=== PATIENT | female | born 1955 | race Caucasian/White ===

== ENCOUNTER → 2017-03-10 | Outpatient (CLI) | payer MEDICARE ==
[~2017-03-10] MED LIST: AMARYL4 MG PO; AMBIEN10 M1 PO; ATIVAN0.5 MG PO; ATIVAN1 MG PO; B-1100 MG PO; BACTRIM DS 8001 TA1 PO; BACTROBAN2% TP; CARDIZEM CD120 MG PO; CARDIZEM60 MG PO; CATAPRES-TTS 10.1 MG PO; CEPHALEXIN500 M1 PO; CEPHULAC10 GM/151 PO; CIPRO500 MG PO; CIPROFLOXACIN500 MG PO; CLARITIN10 MG PO; COZAAR100 MG PO; DEPAKOTE500 MG PO; DILANTIN; DILANTIN100 MG PO; DOXYCYCLINE100 M3 PO; Duoneb 3ML 3 MG/3 ML INH; EES400 MG PO; HYDROCHLOROTHIA25 M1 PO; HYDROCODONE BIT1 T11 PO; HYDROGEL1 GEL; IRON325 M2 PO; K-LOR 20MEQ20 ME1 PO; LIBRIUM25 MG PO; LIDODERM5% TP; LISINOPRIL10 M1 PO; MAG-OX 400400 MG PO; MELATONIN3 M1 PO; METAMUCIL POWD822 GM PO; MIRALAX17 GM PO; MULTIPLE VITAMI1 CAP PO; MYCOLOG CREAM 115 GM T; NAPROSYN500 MG PO; NEOSPORIN1 OI1 T; NICODERM14 MG/24 H TD; OXYBUTYNIN5 MG PO; PEPCID40 MG PO; PREDNISONE10 MG PO; PRILOSEC40 M1 PO; PRIMAXIN 500 M500 MG IV; PROTONIX40 MG PO; PROZAC40 MG PO; PULMICORT RESP0.5 M1 INH; VICO75300 PO; VICODIN 5/500 505 MG PO; VICODIN ES 7501 TAB PO; XANAX; XANAX0.25 MG PO; XANAX0.5 MG PO; XIFAXAN550 MG PO; ZOLPIDEM5 MG PO
[2017-03-10 10:25] LABS: BASO % 0.5 % (0.0-1.0); EOS # 0.1 10*3/uL (0.0-0.4); EOS % 2.5 % (1.0-4.0); HEMOGLOBIN 13.6 g/dl (12.0-16.0); LYMPH # 1.1 10*3/uL (1.3-4.4); LYMPH % 19.9 % (27.0-41.0); MEAN CELL VOLUME 97.1 fl (81.0-99.0); MEAN PLATELET VOLUME 10.7 fl (9.6-12.3); MONO # 0.4 10*3/uL (0.1-1.0); NEUT # 3.9 10*3/uL (2.3-7.9); NEUT % 69.9 % (47.0-73.0); PLATELET COUNT AUTOMATED 66 10*3/uL (130-400); RED BLOOD COUNT 4.12 10*6/uL (4.10-5.10); RED CELL DISTRI WIDTH 13.9 % (0-14.5); WHITE BLOOD COUNT 5.5 10*3/uL (4.8-10.8)
[2017-03-10 10:53] LABS: ALBUMIN 3.6 gm/dl (3.1-4.5); ALKALINE PHOSPHATASE 163 U/L (45-117); BILIRUBIN, TOTAL 0.2 mg/dl (0.2-1.0); BUN 22 mg/dl (7-24); CARBON DIOXIDE 24 mmol/L (21-32); CHLORIDE 112 mmol/L (98-107); EST GLOM FILT AFRICAN AMERICAN > 60 ml/min; GLUCOSE 78 mg/dL (65-99); POTASSIUM 4.4 mmol/L (3.5-5.1); SGOT/AST 19 IU/L (3-35); SGPT/ALT 16 U/L (12-78); SODIUM 144 mmol/L (136-145)
== END | disposition home or self-care (01) ==
LOC: US 10:00 → LAB 10:10
PROVIDERS: Internal Medicine Gastroenterology
DX: K74.60 Unspecified cirrhosis of liver (principal); R10.13 Epigastric pain; I10 Essential (primary) hypertension

== ENCOUNTER → 2017-10-03 | Outpatient (CLI) | payer MEDICARE ==
[2017-10-03 16:51] LABS: BASO # 0.1 10*3/uL (0.0-0.1); EOS # 0.1 10*3/uL (0.0-0.4); EOS % 2.2 % (1.0-4.0); HEMOGLOBIN 11.7 g/dl (12.0-16.0); LYMPH # 1.4 10*3/uL (1.3-4.4); LYMPH % 22.6 % (27.0-41.0); MEAN CORPUSCULAR HGB 32.8 pg (27.0-31.0); MEAN CORPUSCULAR HGB CONC 33.4 g/dl (33.0-37.0); MEAN PLATELET VOLUME 11.3 fl (9.6-12.3); MONO # 0.4 10*3/uL (0.1-1.0); NEUT # 4.1 10*3/uL (2.3-7.9); NEUT % 67.7 % (47.0-73.0); PLATELET COUNT AUTOMATED 72 10*3/uL (130-400); RED BLOOD COUNT 3.57 10*6/uL (4.10-5.10); RED CELL DISTRI WIDTH 13.1 % (0-14.5)
[2017-10-03 17:09] LABS: ALBUMIN 3.3 gm/dl (3.1-4.5); ALKALINE PHOSPHATASE 118 U/L (45-117); BUN 18 mg/dl (7-24); CHLORIDE 115 mmol/L (98-107); CHOLESTEROL 105 mg/dL (<200); CREATININE 0.87 mg/dL (0.55-1.02); FREE T4 0.99 ng/dl (0.76-1.46); HDL CHOLESTEROL 57 mg/dl (40-60); LDL CHOLESTEROL 33 mg/dL (9-159); PHENYTOIN (DILANTIN) 8.7 ug/ml (10-20); POTASSIUM 4.2 mmol/L (3.5-5.1); SGOT/AST 14 IU/L (3-35); SGPT/ALT 18 U/L (12-78); SODIUM 142 mmol/L (136-145); TOTAL PROTEIN 8.3 gm/dL (6.4-8.2); TRIGLYCERIDES 75 mg/dl (<150); VLDL CHOLESTEROL 15 mg/dL (6-40)
[2017-10-03 17:30] LABS: VITAMIN D, 25-HYDROXY 23.1 ng/mL (30-100)
== END ==
LOC: LAB 16:09
PROVIDERS: Internal Medicine
DX: Z13.1 Encounter for screening for diabetes mellitus (principal); Z13.220 Encounter for screening for lipoid disorders; Z13.21 Encounter for screening for nutritional disorder; R56.9 Unspecified convulsions; E55.9 Vitamin D deficiency, unspecified; E78.2 Mixed hyperlipidemia; K70.30 Alcoholic cirrhosis of liver without ascites; R19.7 Diarrhea, unspecified; R53.81 Other malaise

== ENCOUNTER → 2017-10-28 | Outpatient (CLI) | payer MEDICARE | END | disposition home or self-care (01) | LOC: RAD 14:37 | DX: M47.896 Other spondylosis, lumbar region (principal); M47.897 Other spondylosis, lumbosacral region; M43.26 Fusion of spine, lumbar region; M48.061 Spinal stenosis, lumbar region without neurogenic claudication; M48.07 Spinal stenosis, lumbosacral region ==

== ENCOUNTER 2018-01-17 14:24 | Emergency (ER) | payer MEDICARE ==
[~2018-01-17] VITALS: Ht 157.4 cm; Wt 49.9 kg
[2018-01-17] MEDS ORDERED: ZOLOFT50 MG PO (14:41)
[2018-01-17] MEDS ORDERED: DOXEPIN50 MG PO (14:42)
[2018-01-17] MEDS ORDERED: FOLIC ACID0.8 M1 PO (14:42)
[2018-01-17 15:36] LABS: BILIRUBIN NEGATIVE (NEGATIVE); BLOOD TRACE-LYSED (NEGATIVE); CLARITY SL CLOUDY (CLEAR); COLOR YELLOW (YELLOW); GLUCOSE NEGATIVE (NEGATIVE); KETONE TRACE (NEGATIVE); LEUKO ESTERASE NEGATIVE (NEGATIVE); NITRITE NEGATIVE (NEGATIVE); SPECIFIC GRAVITY 1.015 (1.005-1.030); UROBILINOGEN 0.2 E.U./dl (0.2-1.0)
[2018-01-17 15:52] LABS: BACTERIA TRACE; EPITHELIAL CELLS 15-20
[2018-01-17 16:19] LABS: BASO # 0.1 10*3/uL (0.0-0.1); BASO % 0.4 % (0.0-1.0); EOS % 0.3 % (1.0-4.0); HEMATOCRIT 33.2 % (37.0-47.0); HEMOGLOBIN 10.9 g/dl (12.0-16.0); LYMPH % 8.3 % (27.0-41.0); MEAN CELL VOLUME 95.4 fl (81.0-99.0); MEAN CORPUSCULAR HGB 31.3 pg (27.0-31.0); MEAN CORPUSCULAR HGB CONC 32.8 g/dl (33.0-37.0); MEAN PLATELET VOLUME 10.9 fl (9.6-12.3); MONO # 0.6 10*3/uL (0.1-1.0); MONO % 4.7 % (3.0-9.0); NEUT # 9.9 10*3/uL (2.3-7.9); NEUT % 85.7 % (47.0-73.0); PLATELET COUNT AUTOMATED 119 10*3/uL (130-400); RED BLOOD COUNT 3.48 10*6/uL (4.10-5.10); RED CELL DISTRI WIDTH 14.8 % (0-14.5); WHITE BLOOD COUNT 11.6 10*3/uL (4.8-10.8)
[2018-01-17 16:27] LABS: ACT PARTIAL THROMBO TIME 31.8 SECONDS (20.8-31.5)
[2018-01-17 16:34] LABS: ALBUMIN 2.8 gm/dl (3.1-4.5); ALKALINE PHOSPHATASE 167 U/L (45-117); BUN 28 mg/dl (7-24); CHLORIDE 126 mmol/L (98-107); CREATININE 1.12 mg/dL (0.55-1.02); LIPASE 318 U/L (73-393); PHENYTOIN (DILANTIN) 8.1 ug/ml (10-20); POTASSIUM 3.4 mmol/L (3.5-5.1); SGOT/AST 14 IU/L (3-35); SGPT/ALT 19 U/L (12-78); SODIUM 149 mmol/L (136-145); TOTAL PROTEIN 8.3 gm/dL (6.4-8.2)
[2018-01-17 16:42] LABS: TROPONIN I < 0.015 ng/ml (<0.045)
[2018-01-17 17:18] LABS: ABG HCO3 7.3 mmol/l (22-26); ABG O2 SATURATION 97.1 % (95-97); ARTERIAL BLOOD GAS PCO2 19.4 mmHg (35-45)
[2018-01-17 17:22] LABS: ABG BASE EXCESS -19.5 mmol/L (-2.0-2.0); ARTERIAL BLOOD GAS PH 7.195 (7.35-7.45)
[2018-01-20 16:09] LABS: METHYL ALCOHOL 017699 Negative % (0.000-0.010)
[2018-01-21 11:03] LABS: ETHYLENE GLYCOL 071654 None Detected (None detected)
== END 2018-01-17 20:25 | disposition short-term general hospital (02) ==
LOC: ED 14:24
PROVIDERS: Emergency Medicine; Nurse Practitioner Family
DX: E87.2 Acidosis (principal); F17.200 Nicotine dependence, unspecified, uncomplicated; Z79.899 Other long term (current) drug therapy

== ENCOUNTER → 2018-02-02 | Outpatient (CLI) | payer MEDICARE ==
[~2018-02-02] MED LIST changes: +DOXEPIN50 MG PO; +FOLIC ACID0.8 M1 PO; +ZOLOFT50 MG PO
[2018-02-02 12:49] LABS: HEMATOCRIT 33.9 % (37.0-47.0); HEMOGLOBIN 11.3 g/dl (12.0-16.0); MEAN CELL VOLUME 94.7 fl (81.0-99.0); MEAN CORPUSCULAR HGB 31.6 pg (27.0-31.0); MEAN CORPUSCULAR HGB CONC 33.3 g/dl (33.0-37.0); MEAN PLATELET VOLUME 11.7 fl (9.6-12.3); PLATELET COUNT AUTOMATED 195 10*3/uL (130-400); RED BLOOD COUNT 3.58 10*6/uL (4.10-5.10); RED CELL DISTRI WIDTH 15.1 % (0-14.5); WHITE BLOOD COUNT 9.3 10*3/uL (4.8-10.8)
[2018-02-02 13:05] LABS: ALKALINE PHOSPHATASE 191 U/L (45-117); BILIRUBIN, DIRECT 0.1 mg/dL (0.0-0.2); BUN 23 mg/dl (7-24); CHLORIDE 114 mmol/L (98-107); CREATININE 1.04 mg/dL (0.55-1.02); FREE T4 0.96 ng/dl (0.76-1.46); IRON 108 ug/dL (50-170); POTASSIUM 3.8 mmol/L (3.5-5.1); SGOT/AST 23 IU/L (3-35); SGPT/ALT 25 U/L (12-78); SODIUM 140 mmol/L (136-145); TOTAL IRON BINDING CAPACITY 239 ug/dl (250-450)
[2018-02-02 13:11] LABS: PLATELET SUFFICIENCY NORMAL (NORMAL); TOTAL CELLS COUNTED 100 #CELLS
[2018-02-02 13:26] LABS: VITAMIN D, 25-HYDROXY 17.7 ng/mL (30-100)
== END | disposition home or self-care (01) ==
LOC: LAB 11:47
PROVIDERS: Internal Medicine
DX: D50.9 Iron deficiency anemia, unspecified (principal); E55.9 Vitamin D deficiency, unspecified; E78.5 Hyperlipidemia, unspecified; R63.4 Abnormal weight loss

== ENCOUNTER → 2018-04-21 | Outpatient (CLI) | payer MEDICARE | END | disposition home or self-care (01) | LOC: RAD 17:15 | DX: M25.561 Pain in right knee (principal); Z96.651 Presence of right artificial knee joint ==

== ENCOUNTER 2018-07-06 10:30 | Emergency (ER) | payer MEDICARE ==
[~2018-07-06] VITALS: Ht 157.4 cm; Wt 48.1 kg
[2018-07-06] MEDS ORDERED: NAPROSYN500 MG PO (11:45)
== END 2018-07-06 11:58 | disposition home or self-care (01) ==
LOC: ED 10:30
DX: S70.01XA Contusion of right hip, initial encounter (principal); S80.01XA Contusion of right knee, initial encounter; Z79.899 Other long term (current) drug therapy; W18.39XA Other fall on same level, initial encounter; Y93.89 Activity, other specified; Y92.89 Other specified places as the place of occurrence of the external cause; Y99.8 Other external cause status

== ENCOUNTER → 2018-11-16 | Outpatient (CLI) | payer MEDICARE ==
[2018-11-16 14:23] LABS: HEMOGLOBIN 13.2 g/dl (12.0-16.0); MEAN CELL VOLUME 102.1 fl (81.0-99.0); MEAN CORPUSCULAR HGB 34.6 pg (27.0-31.0); MEAN CORPUSCULAR HGB CONC 33.8 g/dl (33.0-37.0); MEAN PLATELET VOLUME 10.6 fl (9.6-12.3); RED BLOOD COUNT 3.82 10*6/uL (4.10-5.10); RED CELL DISTRI WIDTH 14.8 % (0-14.5)
[2018-11-16 15:04] LABS: ALBUMIN 3.5 gm/dl (3.1-4.5); BILIRUBIN, DIRECT 0.1 mg/dL (0.0-0.2); TOTAL PROTEIN 8.1 gm/dL (6.4-8.2)
[2018-11-17 05:08] LABS: TOTAL PROTEIN, SERUM 7.7 g/dL (6.0-8.5)
[2018-11-17 15:07] LABS: A/G RATIO 0.9 (0.7-1.7); ALBUMIN 3.7 g/dL (2.9-4.4); ALPHA-1-GLOBULIN 0.2 g/dL (0.0-0.4); ALPHA-2-GLOBULIN 0.8 g/dL (0.4-1.0); BETA GLOBULIN 1.1 g/dL (0.7-1.3); GAMMA GLOBULIN 1.9 g/dL (0.4-1.8); M-SPIKE Not Observed g/dL (Not Observed)
== END | disposition home or self-care (01) ==
LOC: LAB 13:53
PROVIDERS: Family Medicine
DX: D69.6 Thrombocytopenia, unspecified (principal); R77.1 Abnormality of globulin; R77.9 Abnormality of plasma protein, unspecified; R79.89 Other specified abnormal findings of blood chemistry; Z86.19 Personal history of other infectious and parasitic diseases

== ENCOUNTER 2019-06-20 23:10 | Emergency (ER) | payer MEDICARE ==
[~2019-06-20] VITALS: Wt 52.2 kg
[~2019-06-20 23:10] MED LIST changes: +BUSPAR5 MG PO; +CYMBALTA30 MG PO; +CYMBALTA60 MG PO; +IBUPROFEN400 MG PO; +LACTULOSE20 GM/30 M PO
== END 2019-06-21 02:08 | disposition home or self-care (01) ==
LOC: ED 23:10
DX: S00.03XA Contusion of scalp, initial encounter (principal); S40.022A Contusion of left upper arm, initial encounter; I10 Essential (primary) hypertension; G40.909 Epilepsy, unspecified, not intractable, without status epilepticus; F17.200 Nicotine dependence, unspecified, uncomplicated; Z79.899 Other long term (current) drug therapy; W01.198A Fall on same level from slipping, tripping and stumbling with subsequent striking against other object, initial encounter; Y93.89 Activity, other specified; Y92.89 Other specified places as the place of occurrence of the external cause; Y99.8 Other external cause status

== ENCOUNTER 2019-07-27 15:19 | Emergency (ER) | payer MEDICARE ==
[~2019-07-27] VITALS: Ht 157.4 cm; Wt 54.4 kg
== END 2019-07-27 17:30 | disposition home or self-care (01) ==
LOC: ED 15:19
DX: S60.221A Contusion of right hand, initial encounter (principal); S70.01XA Contusion of right hip, initial encounter; S00.83XA Contusion of other part of head, initial encounter; R11.10 Vomiting, unspecified; F17.200 Nicotine dependence, unspecified, uncomplicated; Z79.899 Other long term (current) drug therapy; Z86.718 Personal history of other venous thrombosis and embolism; W19.XXXA Unspecified fall, initial encounter; Y93.89 Activity, other specified; Y92.89 Other specified places as the place of occurrence of the external cause; Y99.8 Other external cause status

== ENCOUNTER 2019-10-07 13:08 | Inpatient (IN) | payer MEDICARE ==
[~2019-10-07] VITALS: Ht 157.5 cm; Wt 48.5 kg
[2019-10-07 13:18] VITALS: BP 189/102
[2019-10-07 13:48] VITALS: BP 150/90
[2019-10-07 14:33] LABS: BASO # 0.1 10*3/uL (0.0-0.1); EOS # 0.1 10*3/uL (0.0-0.4); EOS % 1.6 % (1.0-4.0); HEMATOCRIT 38.9 % (37.0-47.0); HEMOGLOBIN 12.6 g/dl (12.0-16.0); LYMPH # 1.4 10*3/uL (1.3-4.4); LYMPH % 20.7 % (27.0-41.0); MEAN CELL VOLUME 99.7 fl (81.0-99.0); MEAN CORPUSCULAR HGB 32.3 pg (27.0-31.0); MEAN CORPUSCULAR HGB CONC 32.4 g/dl (33.0-37.0); MEAN PLATELET VOLUME 9.8 fl (9.6-12.3); MONO # 0.5 10*3/uL (0.1-1.0); MONO % 7.4 % (3.0-9.0); NEUT # 4.6 10*3/uL (2.3-7.9); NEUT % 68.9 % (47.0-73.0); PLATELET COUNT AUTOMATED 104 10*3/uL (130-400); RED CELL DISTRI WIDTH 16.5 % (0-14.5); WHITE BLOOD COUNT 6.7 10*3/uL (4.8-10.8)
[2019-10-07 14:45] LABS: ALBUMIN 3.8 gm/dl (3.1-4.5); ALKALINE PHOSPHATASE 128 U/L (45-117); BUN 26 mg/dl (7-24); CHLORIDE 108 mmol/L (98-107); CREATININE 1.21 mg/dL (0.55-1.02); LIPASE 101 U/L (73-393); POTASSIUM 4.5 mmol/L (3.5-5.1); SGOT/AST 25 IU/L (3-35); SGPT/ALT 35 U/L (12-78); SODIUM 137 mmol/L (136-145); TOTAL PROTEIN 8.4 gm/dL (6.4-8.2)
[2019-10-07 14:45] LABS: BILIRUBIN NEGATIVE (NEGATIVE); BLOOD NEGATIVE (NEGATIVE); CLARITY CLEAR (CLEAR); COLOR YELLOW (YELLOW); GLUCOSE NEGATIVE (NEGATIVE); KETONE NEGATIVE (NEGATIVE); LEUKO ESTERASE 1+ (NEGATIVE); NITRITE NEGATIVE (NEGATIVE); SPECIFIC GRAVITY 1.015 (1.005-1.030); UROBILINOGEN 0.2 E.U./dl (0.2-1.0)
[2019-10-07 14:46] VITALS: BP 128/80
--- NOTE | 2019-10-07 14:46 | NUR ---
PT STATES THAT SHE IS FEELING IMPROVED AFTER THE ZOFRAN. PT TO CT AT THIS TIME.
[2019-10-07 14:47] LABS: ACT PARTIAL THROMBO TIME 27.5 SECONDS (20.0-32.1); TROPONIN I < 0.015 ng/ml (<0.045)
[2019-10-07 14:58] LABS: BACTERIA 2+; RBC 0-2 rbc/hpf (0-2)
[2019-10-07 16:35] VITALS: BP 128/72
--- NOTE | 2019-10-07 16:35 | NUR ---
Time: 1634 A 64 year old FEMALE admitted to 4E under services of ODALYS SAUL DO. Pt. arrived via stretcher from ER. Chief complaint: FALLS. NARGIS TORRES
[2019-10-07] MEDS ORDERED: PRINIVIL10 MG PO (17:16)
[2019-10-07] MEDS ORDERED: HYDROXYZINE HCL25 MG PO (17:16)
[2019-10-07] MEDS ORDERED: CLINDAMYCIN HC300 MG PO (17:17)
--- NOTE | 2019-10-07 17:49 | NUR ---
PT STATES BACK PAIN, NORCO GIVEN. WILL MONITOR FOR EFFECTIVENESS
--- NOTE | 2019-10-07 18:00 | NUR ---
DR. BA AWARE OF HOME MEDICATIONS VARIFIED WITH PATIENT RECALL/LIST
--- NOTE | 2019-10-07 18:25 | NUR ---
DR. HUFF AWARE OF STAGE 2 ON BACK, STATES WILL PLACE WOUND CARE ORDERS
[2019-10-07 20:00] VITALS: BP 128/68
--- NOTE | 2019-10-07 21:06 | NUR ---
RESTORIL GIVEN PER ORDER FOR INSOMNIA. SEE MAR.
--- NOTE | 2019-10-07 21:25 | NUR ---
NORCO GIVEN PER ORDER FOR RIGHT SIDE AND BACK PAIN RATED "7" PER PT. SEE MAR.
--- NOTE | 2019-10-07 22:20 | NUR ---
NORCO EFFECTIVE FOR DISCOMFORT IN LOWER BACK AND RIGHT SIDE. RATED PAIN "3" NOW.
[2019-10-08] VITALS: BP 110/60
--- NOTE | 2019-10-08 01:01 | NUR ---
24 HR chart check completed.
--- NOTE | 2019-10-08 05:28 | NUR ---
NORCO GIVEN PER ORDER FOR BACK AND RIGHT SIDED PAIN RATED "7". SEE JAN. UP TO BATHROOM WITH MINIMAL ASSIST X1 AND BACK TO BED.
--- NOTE | 2019-10-08 06:25 | NUR ---
NORCO EFFECTIVE FOR BACK AND RIGHT SIDE PAIN PER PT.
[2019-10-08 06:52] LABS: ACT PARTIAL THROMBO TIME 26.7 SECONDS (20.0-32.1)
[2019-10-08 07:21] LABS: BUN 17 mg/dl (7-24); CHLORIDE 115 mmol/L (98-107); CHOLESTEROL 115 mg/dL (<200); SGOT/AST 27 IU/L (3-35); SGPT/ALT 30 U/L (12-78); SODIUM 141 mmol/L (136-145); TOTAL PROTEIN 6.9 gm/dL (6.4-8.2)
[2019-10-08 07:28] LABS: ALKALINE PHOSPHATASE 108 U/L (45-117); CREATININE 0.86 mg/dL (0.55-1.02); FREE T4 0.94 ng/dl (0.76-1.46); HDL CHOLESTEROL 50 mg/dl (40-60); LDL CHOLESTEROL 47 mg/dL (9-159); PHOSPHOROUS 3.2 mg/dL (2.5-4.9); TRIGLYCERIDES 90 mg/dl (<150); VLDL CHOLESTEROL 18 mg/dL (6-40)
[2019-10-08 08:00] VITALS: BP 118/80
[2019-10-08 08:10] LABS: BASO % 0.6 % (0.0-1.0); EOS # 0.2 10*3/uL (0.0-0.4); EOS % 2.4 % (1.0-4.0); HEMATOCRIT 38.8 % (37.0-47.0); HEMOGLOBIN 12.7 g/dl (12.0-16.0); LYMPH # 0.8 10*3/uL (1.3-4.4); LYMPH % 12.2 % (27.0-41.0); MEAN CELL VOLUME 100.3 fl (81.0-99.0); MEAN CORPUSCULAR HGB 32.8 pg (27.0-31.0); MEAN CORPUSCULAR HGB CONC 32.7 g/dl (33.0-37.0); MEAN PLATELET VOLUME 9.9 fl (9.6-12.3); MONO # 0.3 10*3/uL (0.1-1.0); MONO % 5.3 % (3.0-9.0); NEUT # 4.9 10*3/uL (2.3-7.9); PLATELET COUNT AUTOMATED 74 10*3/uL (130-400); RED BLOOD COUNT 3.87 10*6/uL (4.10-5.10); RED CELL DISTRI WIDTH 16.9 % (0-14.5); WHITE BLOOD COUNT 6.2 10*3/uL (4.8-10.8)
[2019-10-08 08:19] LABS: VITAMIN D, 25-HYDROXY 9.8 ng/mL (30-100)
[2019-10-08 12:00] VITALS: BP 143/63
[2019-10-08 16:00] VITALS: BP 109/80
[2019-10-08 20:00] VITALS: BP 128/67
[2019-10-09] VITALS: BP 130/58
[2019-10-09 05:41] LABS: BASO % 1.1 % (0.0-1.0); EOS # 0.1 10*3/uL (0.0-0.4); EOS % 3.6 % (1.0-4.0); HEMATOCRIT 34.8 % (37.0-47.0); HEMOGLOBIN 11.5 g/dl (12.0-16.0); LYMPH # 0.7 10*3/uL (1.3-4.4); LYMPH % 17.8 % (27.0-41.0); MEAN CELL VOLUME 99.4 fl (81.0-99.0); MEAN CORPUSCULAR HGB 32.9 pg (27.0-31.0); MEAN PLATELET VOLUME 9.8 fl (9.6-12.3); MONO # 0.3 10*3/uL (0.1-1.0); MONO % 8.7 % (3.0-9.0); NEUT # 2.5 10*3/uL (2.3-7.9); NEUT % 68.3 % (47.0-73.0); PLATELET COUNT AUTOMATED 65 10*3/uL (130-400); RED CELL DISTRI WIDTH 16.8 % (0-14.5); WHITE BLOOD COUNT 3.7 10*3/uL (4.8-10.8)
[2019-10-09 06:07] LABS: ALKALINE PHOSPHATASE 121 U/L (45-117); BUN 13 mg/dl (7-24); CHLORIDE 114 mmol/L (98-107); CREATININE 0.77 mg/dL (0.55-1.02); POTASSIUM 4.2 mmol/L (3.5-5.1); SGOT/AST 21 IU/L (3-35); SGPT/ALT 25 U/L (12-78); SODIUM 143 mmol/L (136-145); TOTAL PROTEIN 7.1 gm/dL (6.4-8.2)
[2019-10-09 08:00] VITALS: BP 122/64
--- NOTE | 2019-10-09 08:30 | NUR ---
Patient resting quietly with no c/o discomfort. Respirations easy and regular. Vital signs stable. No overt distress. MALI ROBERTO R
--- NOTE | 2019-10-09 11:12 | NUR ---
DR BRAND NOTIFIED OF CONSULT. NEW ORDERS RECEIVED,
[2019-10-09 12:00] VITALS: BP 97/85
--- NOTE | 2019-10-09 14:05 | NUR ---
PT REQUESTED AND WAS MEDICATED WITH NORCO FOR C/O GENERALIZED PAIN AND XANAX FOR C/O ANXIETY. CALL LIGHT IN REACH. WILL MONITOR
--- NOTE | 2019-10-09 15:30 | NUR ---
MEDICATIONS EFFECTIVE PER PT. CALL LIGHT IN REACH. WILL MONITOR
[2019-10-09 16:00] VITALS: BP 135/58
[2019-10-09 20:00] VITALS: BP 107/48
--- NOTE | 2019-10-09 20:28 | NUR ---
PATIENT SITTING UP AT THE EDGE OF THE BED. PRN RESTORIL GIVEN PER REQUEST FOR SOMETHING TO SLEEP. PATIENT ASSISTED TO BATHROOM AND BACK BY STAFF. GAIT UNSTEADY. IV TO RIGHT HAND LEAKING. IV SITE ATTEMPTED BUT UNSUCCESSFUL. ICU NURSE WILL BE IN TO TRY FOR ANOTHER IV SITE. NO OTHER NEEDS PER PATIENT. CALL LIGHT WITHIN REACH. BED ALARM ON FOR SAFETY.
--- NOTE | 2019-10-09 21:20 | NUR ---
PATIENT SLEEPING IN BED. PRN RESTORIL EFFECTIVE.
--- NOTE | 2019-10-09 22:32 | NUR ---
24 HR chart check completed.
[2019-10-10] VITALS (7 sets, daily range): BP systolic 109–140; BP diastolic 54–75
--- NOTE | 2019-10-10 05:15 | NUR ---
PATIENT ASSISTED TO RESTROOM AND BACK TO BED BY STAFF. GAIT VERY UNSTEADY THIS MORNING. NO COMPLAINTS OF PAIN. CALL LIGHT WITHIN REACH. BED ALARM ON FOR SAFETY.
[2019-10-10 07:03] LABS: HEMATOCRIT 35.5 % (37.0-47.0); HEMOGLOBIN 11.7 g/dl (12.0-16.0); MEAN CELL VOLUME 99.7 fl (81.0-99.0); MEAN CORPUSCULAR HGB 32.9 pg (27.0-31.0); MEAN PLATELET VOLUME 10.9 fl (9.6-12.3); PLATELET COUNT AUTOMATED 63 10*3/uL (130-400); RED BLOOD COUNT 3.56 10*6/uL (4.10-5.10); RED CELL DISTRI WIDTH 16.9 % (0-14.5)
[2019-10-10 07:24] LABS: ALBUMIN 2.9 gm/dl (3.1-4.5); ALKALINE PHOSPHATASE 107 U/L (45-117); BUN 18 mg/dl (7-24); CHLORIDE 110 mmol/L (98-107); CREATININE 0.72 mg/dL (0.55-1.02); PLATELET SUFFICIENCY LOW (NORMAL); POTASSIUM 4.3 mmol/L (3.5-5.1); SGOT/AST 21 IU/L (3-35); SGPT/ALT 28 U/L (12-78); SODIUM 140 mmol/L (136-145); TOTAL CELLS COUNTED 100 #CELLS; TOTAL PROTEIN 6.9 gm/dL (6.4-8.2)
--- NOTE | 2019-10-10 09:27 | NUR ---
ARELY VARMA [id number] Please refer to the physician's history and physical for past medical history, comorbid conditions, and allergies. Diagnosis: UTI ACUTE KIDNEY FAILURE WITH TUBULAR NECROSIS Piotr Score: 19,LOW OR NO RISK WOUND DESCRIPTIONS: Wound Number: 1 Location of the wound: LOWER BACK MIDLINE Type of wound: STAGE 2 Thickness: Partial Size: 1.5cm X 1.7cm X 0.1cm Tunneling: NONE Undermining: NONE Sinus Tract: NONE Presence of Exudate: Serous Amount: Light Color: Red Odor: None Periwound Skin Appearance: Erythema Wound edges: APPROXIMATED Pain (associated with wound): DENIED AT TIME OF ASSESSMENT How does patient state this happened? PATIENT STATES THIS HAPPENED WHEN SHE FELL THIS PAST WEEK. Surface the patient is resting on: Isoflex SKIN PREVENTION RECOMMENDATION: 1. Pressure redistribution support surface as appropriate 2. Elevate heels 3. Remove boots/TEDS every shift and reapply 4. Head of bed 30 degrees as tolerated 5. Assess nutrition and hydration 6. Manage moisture 7. Avoid the use of containment devices while in bed 8. Use absorptive products on surfaces limit layers of linens on bed 9. Turn and reposition every 1-2 hours in bed and every 1 hour in chair as tolerated 10. Weight shifts every 15 minutes while up in chair 11. Offloading with pillows or device to keep heels elevated off bed 12. Monitor skin at least every shift 13. Inspect under medical devices twice a day WOUND TREATMENT RECOMMENDATIONS: CONTINUE CURRENT STAGE 2 GUIDELINES.
--- NOTE | 2019-10-10 10:26 | NUR ---
Dr. Hendrix notified of wound care recommendations.
--- NOTE | 2019-10-10 12:26 | NUR ---
Tubing Drier in to talk to patient. Patient states lives at HOME with BROTHER. There are FEW steps in the home. Physician: JONI [facility] [place] Patient's level of ADLs: MINIMAL ASSIST Patient has working utilities: YES DME: NONE Follow-up physician's appointment after d/c: WILL BE MADE BY HOSPITALIST NURSE DIRECTOR ON DISCHARGE Does patient want to access PORTAL?: NO Discharge plan PT LIVES AT HOME WITH HER BROTHER. STATES SHE HAS BEEN FALLING A LOT LATELY, TALKED WITH PT ABOUT GOING TO A SNF STAY PRIOR TO GOING HOME AND SHE IS AGREEING. GIVEN LIST OF FACILITIES SHE STATES SHE HAS BEEN TO [facility] AND WOULD LIKE TO RETURN THERE. [facility] INFORMED AND WILL SEND REFERRAL. WILL CONTINUE TO FOLLOW.. RUPAL DOMINGUEZ
--- NOTE | 2019-10-10 12:35 | NUR ---
Patient requesting referral to [facility] ([facility]). Contacted Jaye and faxed referral. waiting on review/acceptance.
--- NOTE | 2019-10-10 14:03 | NUR ---
PHYSICAL THERAPY Patient seen this pm 1:1 for therapy visit and was supine in bed with a family visitor upon therapist arrival. Patient identified by name / and was very pleasant this afternoon, voicing no new c/o's. Patient transfers supine to sit EOB with MIN A and then sit to stand CGA x 1. Patient ambulates CHISEL TRIMMER/CGA, 45'x 2, demonstrating slow, ataxic gait pattern and pronated R foot posture. Patient able to take 5-6 backward steps and tolerated eyes open / closed with only slight LOB, but was able to self correct each trial. Patient returned to supine in bed with mild fatigue and remained with call light, tray table, telephone, bed alarm for safety. Will continue per POC as tolerated, total treatment time 16 minutes. Buster Duran, DOCK ASSOCIATE
--- NOTE | 2019-10-10 14:03 | NUR ---
Nutritional Support Services Note: Pt has a scabbed area noted on back, she states its due to a fall at home last week. Appetite is good for meals, at times flucuates. She doesn't want a supplement at this time, but we will provide a snack nightly. Will follow as needed. Zoe Nails Rdn Ld
--- NOTE | 2019-10-10 15:30 | NUR ---
Occupational Therapy evaluation completed on 4 with full eval to follow. Precautions include fall risk;bed alarm, h/o recent falls, right hemiparesis,moderate complexity level 66820 via chart review, testing and evaluation. Recommend OT per POC and SNF to enable return home at indep level. Thank you. Adriana Silva OTR/l
--- NOTE | 2019-10-10 15:42 | NUR ---
Ambulatory to BR w/ help.
--- NOTE | 2019-10-10 18:38 | NUR ---
PHYSICAL THERAPY Nursing screen received and chart reviewed. Physical therapy order received and completed. Thank you. Alison Corbin,PT,DPT
--- NOTE | 2019-10-10 18:46 | NUR ---
Returned to room in stable condition. Diet ordered.
--- NOTE | 2019-10-10 19:35 | NUR ---
PATIENT MEDICATED WITH PRN NORCO FOR C/O GENERALIZED PAIN. LUNG SOUNDS CLEAR. BS NORMOACTIVE X4. PATIENT DENIES NAUSEA AND VOMITING. CALL LIGHT WITHIN REACH. WILL MONITOR FOR EFFECTIVENESS.
--- NOTE | 2019-10-10 19:58 | NUR ---
PATIENT MEDICATED WITH PRN RESTORIL PER REQUEST FOR SOMETHING FOR SLEEP. WILL MONITOR FOR EFFECTIVENESS.
--- NOTE | 2019-10-10 20:30 | NUR ---
PER PATIENT PRN NORCO EFFECTIVE.
--- NOTE | 2019-10-10 20:45 | NUR ---
PRN RESTORIL EFFECTIVE. PATIENT SLEEPING IN BED. RESPIRATIONS EVEN AND UNLABORED. CALL LIGHT WITHIN REACH. BED ALARM ON FOR SAFETY.
--- NOTE | 2019-10-10 23:00 | NUR ---
PT SLEEPING AT THIS TIME. RESPIRATIONS EASY. CALL LIGHT IN REACH.
[2019-10-11] VITALS: BP 120/67
--- NOTE | 2019-10-11 01:00 | NUR ---
PT IS SLEEPING AT THIS TIME. RESPIRATIONS EASY. CALL LIGHT IN REACH
--- NOTE | 2019-10-11 04:29 | NUR ---
Patient stated she will care for this area upon return home and if she needs to follow up anywhere she will contact the wound care center
--- NOTE | 2019-10-11 05:00 | NUR ---
PT LYING IN BED AT THIS TIME. RESPIRATIONS EASY AND UNLABORED. CALL LIGHT IN REACH.
--- NOTE | 2019-10-11 07:49 | NUR ---
Patient accepted to [facility]. 3 night stay complete. Patient can go when medically stable for discharge.
[2019-10-11 08:00] VITALS: BP 119/67
--- NOTE | 2019-10-11 09:55 | NUR ---
PHYSICAL THERAPY Patient was approached several times this am for therapy visit and was sleeping first attempt, then eating a late breakfast upon second attempt. Will continue per POC as able. Buster Duran, CLICKER OPERATOR
--- NOTE | 2019-10-11 10:52 | NUR ---
PT REQUESTED AND WAS MEDICATED WITH NORCO FOR C/O GENERALIZED PAIN. CALL LIGHT IN REACH. WILLL MONITOR
[2019-10-11] MEDS ORDERED: Carafate1 GM/10 ML PO (11:57)
[2019-10-11] MEDS ORDERED: PANTOPRAZOLE SO40 MG PO (11:57)
[2019-10-11] MEDS ORDERED: PEPCID AC20 MG PO (11:57)
[2019-10-11] MEDS ORDERED: AMLODIPINE BESYL5 MG PO (11:57)
[2019-10-11] MEDS ORDERED: TRAMADOL HCL50 MG PO (11:57)
[2019-10-11] MEDS ORDERED: XANAX0.5 MG PO (11:57)
--- NOTE | 2019-10-11 11:59 | NUR ---
Patient is discharged to [facility], transportation scheduled for 1PM with [facility]. NH, nursing/race steward all notified. Patient stated her son is her only contact and he is at work until 8 PM.
--- NOTE | 2019-10-11 12:15 | NUR ---
PT REFUSED WOUND DISCHARGE PHOTO, SHE STATES "IT'S NOT NEEDED"
--- NOTE | 2019-10-11 12:30 | NUR ---
Discharge instructions reviewed with patient/family. Patient receptive and verbalizes understanding. Follow-up care arranged. Written instructions given to patient/family. MALI ROBERTO
--- NOTE | 2019-10-11 12:30 | NUR ---
ATTEMPTED TO CALL REPORT, NO ANSWER ON THE LINE I WAS SENT TO. MESSAGE LEFT TO RETURN CALL.
--- NOTE | 2019-10-11 12:57 | NUR ---
CALLED TO GIVE REPORT NO ANSWER AT LINE I WAS TRANSFERRED TO. WILL ATTEMPT AGAIN
--- NOTE | 2019-10-11 14:15 | NUR ---
REPORT CALLED TO STEPHEN.
--- NOTE | 2019-10-12 08:37 | NUR ---
OCCUPATIONAL THERAPY CO-SIGN I approve of the Occupational Therapy notes written above. TOÑA DALLAS OTR/Karla
--- NOTE | 2019-10-12 11:25 | NUR ---
PHYSICAL THERAPY CO-SIGN I approve of the Physical Therapy notes written above. Em Chong PT
== END 2019-10-11 13:30 | disposition other institution (70) | DRG 689 ==
LOC: ED 13:08 → 4E 16:36
PROVIDERS: Family Medicine; Hospitalist; ADMIT Emergency Medicine
PROC: 0DB78ZX Excision of Stomach, Pylorus, Via Natural or Artificial Opening Endoscopic, Diagnostic (ICD-10-PCS; principal; 2019-10-10)
DX: N39.0 Urinary tract infection, site not specified (principal); N17.0 Acute kidney failure with tubular necrosis; E44.0 Moderate protein-calorie malnutrition; E87.2 Acidosis; K22.10 Ulcer of esophagus without bleeding; Z68.1 Body mass index [BMI] 19.9 or less, adult; B19.20 Unspecified viral hepatitis C without hepatic coma; J44.9 Chronic obstructive pulmonary disease, unspecified; K44.9 Diaphragmatic hernia without obstruction or gangrene; K29.70 Gastritis, unspecified, without bleeding; K21.0 Gastro-esophageal reflux disease with esophagitis; K25.9 Gastric ulcer, unspecified as acute or chronic, without hemorrhage or perforation; K29.80 Duodenitis without bleeding; D69.6 Thrombocytopenia, unspecified; R74.8 Abnormal levels of other serum enzymes; E87.8 Other disorders of electrolyte and fluid balance, not elsewhere classified; K74.60 Unspecified cirrhosis of liver; F17.210 Nicotine dependence, cigarettes, uncomplicated; D75.89 Other specified diseases of blood and blood-forming organs; G40.909 Epilepsy, unspecified, not intractable, without status epilepticus; I10 Essential (primary) hypertension; Z91.81 History of falling; Z86.73 Personal history of transient ischemic attack (TIA), and cerebral infarction without residual deficits; Z90.49 Acquired absence of other specified parts of digestive tract; Z84.89 Family history of other specified conditions; Z79.899 Other long term (current) drug therapy

== ENCOUNTER 2019-11-26 19:25 | Emergency (ER) | payer MEDICARE ==
[~2019-11-26] VITALS: Ht 157.4 cm; Wt 68.0 kg
[~2019-11-26 19:25] MED LIST changes: +AMLODIPINE BESYL5 MG PO; +CLINDAMYCIN HC300 MG PO; +Carafate1 GM/10 ML PO; +HYDROXYZINE HCL25 MG PO; +PANTOPRAZOLE SO40 MG PO; +PEPCID AC20 MG PO; +PRINIVIL10 MG PO; +TRAMADOL HCL50 MG PO
[2019-11-26 19:59] LABS: BASO # 0.1 10*3/uL (0.0-0.1); BASO % 0.7 % (0.0-1.0); EOS % 0.4 % (1.0-4.0); HEMATOCRIT 33.6 % (37.0-47.0); HEMOGLOBIN 11.1 g/dl (12.0-16.0); LYMPH # 1.2 10*3/uL (1.3-4.4); LYMPH % 10.9 % (27.0-41.0); MEAN CELL VOLUME 100.9 fl (81.0-99.0); MEAN CORPUSCULAR HGB 33.3 pg (27.0-31.0); MEAN PLATELET VOLUME 10.3 fl (9.6-12.3); MONO # 0.5 10*3/uL (0.1-1.0); MONO % 4.3 % (3.0-9.0); NEUT # 8.7 10*3/uL (2.3-7.9); NEUT % 82.7 % (47.0-73.0); PLATELET COUNT AUTOMATED 96 10*3/uL (130-400); RED BLOOD COUNT 3.33 10*6/uL (4.10-5.10); RED CELL DISTRI WIDTH 13.9 % (0-14.5); WHITE BLOOD COUNT 10.5 10*3/uL (4.8-10.8)
[2019-11-26 20:15] LABS: ALBUMIN 3.5 gm/dl (3.1-4.5); ALKALINE PHOSPHATASE 179 U/L (45-117); BUN 22 mg/dl (7-24); CHLORIDE 113 mmol/L (98-107); CREATININE 1.08 mg/dL (0.55-1.02); POTASSIUM 3.9 mmol/L (3.5-5.1); SGOT/AST 35 IU/L (3-35); SGPT/ALT 36 U/L (12-78); SODIUM 142 mmol/L (136-145)
[2019-11-26 20:28] LABS: BILIRUBIN NEGATIVE (NEGATIVE); BLOOD TRACE-INTACT (NEGATIVE); CLARITY CLOUDY (CLEAR); COLOR YELLOW (YELLOW); GLUCOSE NEGATIVE (NEGATIVE); KETONE NEGATIVE (NEGATIVE); LEUKO ESTERASE 2+ (NEGATIVE); NITRITE NEGATIVE (NEGATIVE); UROBILINOGEN 0.2 E.U./dl (0.2-1.0)
[2019-11-26 20:36] LABS: URINE AMPHETAMINES < 1000 (1000ng/ml); URINE BARBITURATES < 200 (200ng/ml); URINE BENZODIAZEPINES < 200 (200ng/ml); URINE CANNABINOIDS (THC) < 50 (50ng/ml); URINE COCAINE < 300 (300ng/ml); URINE METHADONE < 300 (300ng/ml); URINE OPIATES < 300 (300ng/ml)
[2019-11-26 20:37] LABS: BACTERIA 2+; WBC TNTC wbc/hpf (0-5)
[2019-11-26 20:39] LABS: URINE PHENCYCLIDINE < 25 (25ng/ml)
== END 2019-11-26 21:03 | disposition short-term general hospital (02) ==
LOC: ED 19:25
PROVIDERS: Emergency Medicine
DX: S06.5X2A Traumatic subdural hemorrhage with loss of consciousness of 31 minutes to 59 minutes, initial encounter (principal); S01.01XA Laceration without foreign body of scalp, initial encounter; F10.929 Alcohol use, unspecified with intoxication, unspecified; M79.601 Pain in right arm; M79.604 Pain in right leg; F12.90 Cannabis use, unspecified, uncomplicated; R41.0 Disorientation, unspecified; R47.81 Slurred speech; I10 Essential (primary) hypertension; F17.200 Nicotine dependence, unspecified, uncomplicated; Z90.49 Acquired absence of other specified parts of digestive tract; Z79.899 Other long term (current) drug therapy; Z86.73 Personal history of transient ischemic attack (TIA), and cerebral infarction without residual deficits; W10.8XXA Fall (on) (from) other stairs and steps, initial encounter; Y93.89 Activity, other specified; Y92.098 Other place in other non-institutional residence as the place of occurrence of the external cause; Y99.8 Other external cause status